=== PATIENT | female | born 1995 | race Caucasian/White ===

== ENCOUNTER 2022-03-05 15:09 | Emergency (ER) | payer OTHER, SELFPAY ==
--- NOTE | 2022-03-05 | DI.US.S_ITS ---
PROCEDURE: US BREAST RT LIMITED COMPARISON: None. INDICATIONS: RETROAREOLAR AXILLARY PAIN FINDINGS/IMPRESSION: No mass, fluid collection, or other significant abnormality in the right retroareolar breast. Right axillary evaluation demonstrates no lymphadenopathy, fluid collection, or other significant abnormality. Dictated by: Jesus Hartley M.D. on 03/05/2022 at 20:08 Approved by: Jesus Hartley M.D. on 03/05/2022 at 20:09
[2022-03-05 15:16] VITALS: BP 124/78; PULSE 76; RESP 18; TEMP 36.6; O2SAT 99
--- NOTE | 2022-03-05 15:22 | DI.RAD.S_ITS ---
PROCEDURE: XR CHEST 1V INDICATIONS: chest pain TECHNIQUE: One view of the chest was acquired. COMPARISON: [facility], , CHEST 2 VIEW, 12/03/2016, 14:42. FINDINGS: Surgical changes and devices: None. Lungs and pleura: Lungs are clear. No pleural effusions or pneumothorax. Mediastinum: Mediastinal contours appear normal. Heart size is normal. Bones and chest wall: No suspicious bony lesions. Overlying soft tissues appear unremarkable. IMPRESSION: No acute cardiopulmonary process demonstrated radiographically. Dictated by: Jesus Hartley M.D. on 03/05/2022 at 16:26 Approved by: Jesus Hartley M.D. on 03/05/2022 at 16:26
[2022-03-05 17:38] LABS: Add Manual Diff / Slide Review NO; Basophils Absolute Auto 100 /uL (0-100); Basophils Percent Auto 0.5 % (0-2); Eosinophils Absolute Auto 200 /uL (0-450); Eosinophils Percent Auto 1.4 % (2-4); Hematocrit 43.3 % (36-46); Hemoglobin 14.6 g/dL (12.0-16.0); Lymphocytes Absolute Auto 3300 /uL (1100-4500); Mean Corpuscular HGB Conc 33.7 % (30-36); Mean Corpuscular Hemoglobin 27.2 PG (26-34); Mean Corpuscular Volume 80.7 fL (80-100); Monocytes Absolute Auto 1000 /uL (0-900); Neutrophils Absolute Auto 8500 /uL (1500-7000); Neutrophils Percent Auto 65.1 % (50-75); Platelet Count 361 X10^3/uL (150-400); Red Blood Cell Count 5.37 X10^6/uL (4.0-5.2); Red Cell Distribution Width 16.3 % (11.6-14.8)
[2022-03-05 17:42] LABS: Alanine Aminotransferase 36 IU/L (<35); Albumin 4.7 g/dL (3.5-5.0); Albumin Globulin Ratio 1.3 (1.0-2.8); Alkaline Phosphatase 90 U/L (38-126); Aspartate Aminotransferase 48 IU/L (14-36); BUN Creatinine Ratio 16.1 (6-22); Bilirubin Total 0.5 mg/dL (0.2-1.3); Blood Urea Nitrogen 9 mg/dL (7-17); Calcium 9.3 mg/dL (8.4-10.2); Carbon Dioxide 26 mmol/L (22-32); Chloride 105 mmol/L (98-107); Creatine Kinase 63 U/L (30-135); Estimated Glomerular Filt Rate > 60 mL/min (>60); Globulin 3.6 g/dL (1.7-4.1); Glucose 96 mg/dL (70-100); HEMOLYSIS 26 (0-50); Lipase 59 U/L (23-300); Magnesium 1.9 mg/dL (1.6-2.3); Potassium 3.9 mmol/L (3.4-5.1); Sodium 142 mmol/L (137-145); Total Protein 8.3 g/dL (6.3-8.2)
[2022-03-05 17:54] LABS: Troponin I < 0.012 ng/mL (0.01-0.034)
[2022-03-05 18:01] VITALS: BP 131/78; PULSE 77; RESP 18; O2SAT 99
--- NOTE | 2022-03-05 18:21 | ED.CHESTPAIN ---
HPI - Chest Pain <JESSICA Griffin - Last Filed: 03/05/22 20:52> General Chief Complaint: Chest Pain Stated Complaint: Chest pain/breast pain/arm pits pain Time Seen by Provider: 03/05/22 18:07 Source: patient Mode of arrival: Ambulatory History of Present Illness HPI narrative: This is a 26-year-old female who presents to the emergency department complaining of left and right breast pain, states it feels like her chest is on fire, endorses bilateral armpit tenderness, states that she has had a runny nose and congestion for the last 2 weeks or more, endorses history of GERD and IBS, states that she is no longer on pantoprazole as she was prescribed from her primary care provider, states that her prescription ran out. Her primary care provider is Dr. Julian Samuel. She endorses having heartburn, burning of her epigastrium, states that both of her breasts are tender and she is not had a menses since November. Denies any abnormal vaginal discharge, denies any fever, chills, nausea, vomiting, states her stools have been regular and she has 1 each day, states they are soft. Denies any history of abdominal surgery, endorses midline burning sensation with bilateral breast pain primarily central around the areola and nipple. Endorses some mild erythema to the lateral left breast. Patient has a history of iodine allergy with vomiting and states that she blacks out. History allergy to amoxicillin with vomiting, codeine, sulfa, and miconazole. Related Data Previous Rx's Medication Instructions Recorded cefdinir 300 mg capsule 300 mg PO BID 10 days #20 caps 03/05/22 clindamycin HCl 150 mg capsule 150 mg PO TID mastitis 10 days #30 03/05/22 caps clindamycin HCl 300 mg capsule 300 mg PO BID for mastitis 10 days 03/05/22 #20 caps clindamycin HCl 300 mg capsule 300 mg PO TID 10 days #30 caps 03/05/22 pantoprazole 20 mg tablet,delayed 20 mg PO BID #60 tabs 03/05/22 release Allergies Allergy/AdvReac Type Severity Reaction Status Date / Time amoxicillin [AMOXICILLIN] Allergy Unknown Verified 03/05/22 18:34 Iodinated Contrast Media Allergy Unknown Verified 03/05/22 18:34 [IODINATED CONTRAST- ORAL AND IV DYE] sulfamethoxazole Allergy Unknown Verified 03/05/22 18:34 [From SEPTRA] trimethoprim [From SEPTRA] Allergy Unknown Verified 03/05/22 18:34 codeine Allergy Verified 03/05/22 18:34 miconazole Allergy Verified 03/05/22 18:34 [From Monistat 1 Combo Pack] Review of Systems <JESSICA Griffin - Last Filed: 03/05/22 20:52> Review of Systems Narrative: Review of systems is negative for acute abnormalities unless otherwise noted in HPI Exam <JESSICA Griffin - Last Filed: 03/05/22 20:52> Narrative Exam Narrative: Reviewed vitals signs and nursing notes. General: cooperative, comfortable, in no acute distress, well groomed HEENT: symmetrical facial expressions, moist mucous membranes Cardiovascular: regular rate and rhythm, no peripheral edema, warm extremities Respiratory: normal effort, able to speak in complete sentences, without wheezing, stridor, or abnormal breath sounds. No retractions or tachypnea. GI: abdomen soft, nontender to palpation, nondistended, without masses, rebound tenderness or exquisite tenderness with exam. MSK: moves all extremities, neurovascularly intact, no weakness, normal tone Skin: brisk capillary refill, without pallor or erythema, bilateral breasts without significant erythema, point tenderness, fluctuance, or sign of abscess or cellulitis. No masses or lumps or palpable Neuro: normal speech and cognition, A&O x3, ambulatory, clear speech Psych: mental status is grossly normal, congruent mood, normal affect, pleasant and cooperative Initial Vital Signs Initial Vital Signs: Vital Signs Temperature 97.8 F 03/05/22 15:16 Pulse Rate 76 03/05/22 15:16 Respiratory Rate 18 03/05/22 15:16 Blood Pressure 124/78 03/05/22 15:16 Pulse Oximetry 99 03/05/22 15:16 Oxygen Delivery Method 03/05/22 15:16 <Karon Maya DO - Last Filed: 03/07/22 09:02> Initial Vital Signs Initial Vital Signs: Vital Signs Temperature 97.8 F 03/05/22 15:16 Pulse Rate 76 03/05/22 15:16 Respiratory Rate 18 03/05/22 15:16 Blood Pressure 124/78 03/05/22 15:16 Pulse Oximetry 99 03/05/22 15:16 Oxygen Delivery Method 03/05/22 15:16 <Santos Parker DO - Last Filed: 03/06/22 04:46> Initial Vital Signs Initial Vital Signs: Vital Signs Temperature 97.8 F 03/05/22 15:16 Pulse Rate 76 03/05/22 15:16 Respiratory Rate 18 03/05/22 15:16 Blood Pressure 124/78 03/05/22 15:16 Pulse Oximetry 99 03/05/22 15:16 Oxygen Delivery Method 03/05/22 15:16 Course <JESSICA Griffin - Last Filed: 03/05/22 20:52> Orders Ordered: Discontinued Medications Al Hydrox/Mg Hydrox/Simethicone 20 ml/ Lidocaine HCl 15 ml 0 ml PO NOW ONE Stop: 03/05/22 18:23 Last Admin: 03/05/22 18:37 Dose: 35 ml Documented By: AT Lactated Ringer's (Lactated Ringers) 1,000 mls @ 1,000 mls/hr IV BOLUS ONE Stop: 03/05/22 19:24 Last Infusion: 03/05/22 21:04 Dose: 0 mls/hr Documented By: Admin: 03/05/22 18:35 Dose: 1,000 mls/hr Documented By: AT Ceftriaxone Sodium 1,000 mg/ (Sodium Chloride) 100 mls @ 200 mls/hr IV NOW ONE Stop: 03/05/22 19:14 Last Infusion: 03/05/22 21:04 Dose: 0 mls/hr Documented By: Admin: 03/05/22 20:02 Dose: 200 mls/hr Documented By: STONEY Pantoprazole Sodium (Pantoprazole 40 Mg Vial) 40 mg IV NOW ONE Stop: 03/05/22 18:23 Last Admin: 03/05/22 18:37 Dose: 40 mg Documented By: AT Vital Signs Vital signs: Vital Signs - 8 hr 03/05/22 21:05 Temperature 96.7 F L Pulse Rate 67 Respiratory Rate 16 Blood Pressure 128/77 Pulse Oximetry 100 Oxygen Delivery Method Room Air <Karon Maya DO - Last Filed: 03/07/22 09:02> Orders Ordered: Discontinued Medications Al Hydrox/Mg Hydrox/Simethicone 20 ml/ Lidocaine HCl 15 ml 0 ml PO NOW ONE Stop: 03/05/22 18:23 Last Admin: 03/05/22 18:37 Dose: 35 ml Documented By: AT Lactated Ringer's (Lactated Ringers) 1,000 mls @ 1,000 mls/hr IV BOLUS ONE Stop: 03/05/22 19:24 Last Infusion: 03/05/22 21:04 Dose: 0 mls/hr Documented By: Admin: 03/05/22 18:35 Dose: 1,000 mls/hr Documented By: AT Ceftriaxone Sodium 1,000 mg/ (Sodium Chloride) 100 mls @ 200 mls/hr IV NOW ONE Stop: 03/05/22 19:14 Last Infusion: 03/05/22 21:04 Dose: 0 mls/hr Documented By: Admin: 03/05/22 20:02 Dose: 200 mls/hr Documented By: STONEY Pantoprazole Sodium (Pantoprazole 40 Mg Vial) 40 mg IV NOW ONE Stop: 03/05/22 18:23 Last Admin: 03/05/22 18:37 Dose: 40 mg Documented By: AT Vital Signs Vital signs: Vital Signs - 8 hr 03/05/22 21:05 Temperature 96.7 F L Pulse Rate 67 Respiratory Rate 16 Blood Pressure 128/77 Pulse Oximetry 100 Oxygen Delivery Method Room Air <Santos Parker DO - Last Filed: 03/06/22 04:46> Orders Ordered: Discontinued Medications Al Hydrox/Mg Hydrox/Simethicone 20 ml/ Lidocaine HCl 15 ml 0 ml PO NOW ONE Stop: 03/05/22 18:23 Last Admin: 03/05/22 18:37 Dose: 35 ml Documented By: AT Lactated Ringer's (Lactated Ringers) 1,000 mls @ 1,000 mls/hr IV BOLUS ONE Stop: 03/05/22 19:24 Last Infusion: 03/05/22 21:04 Dose: 0 mls/hr Documented By: Admin: 03/05/22 18:35 Dose: 1,000 mls/hr Documented By: AT Ceftriaxone Sodium 1,000 mg/ (Sodium Chloride) 100 mls @ 200 mls/hr IV NOW ONE Stop: 03/05/22 19:14 Last Infusion: 03/05/22 21:04 Dose: 0 mls/hr Documented By: Admin: 03/05/22 20:02 Dose: 200 mls/hr Documented By: STONEY Pantoprazole Sodium (Pantoprazole 40 Mg Vial) 40 mg IV NOW ONE Stop: 03/05/22 18:23 Last Admin: 03/05/22 18:37 Dose: 40 mg Documented By: AT Vital Signs Vital signs: Vital Signs - 8 hr 03/05/22 21:05 Temperature 96.7 F L Pulse Rate 67 Respiratory Rate 16 Blood Pressure 128/77 Pulse Oximetry 100 Oxygen Delivery Method Room Air MDM - Chest Pain <JESSICA Griffin - Last Filed: 03/05/22 20:52> Lab Data Result diagrams: 03/05/22 15:25 03/05/22 15:25 Labs: Lab Results 03/05/22 03/05/22 03/05/22 Range/Units 15:25 15:25 18:50 WBC 13.0 H (4.5-11.0) X10^3/uL RBC 5.37 H (4.0-5.2) X10^6/uL Hgb 14.6 (12.0-16.0) g/dL Hct 43.3 (36-46) % MCV 80.7 (80-100) fL MCH 27.2 (26-34) PG MCHC 33.7 (30-36) % RDW 16.3 H (11.6-14.8) % Plt Count 361 (150-400) X10^3/uL Neut % (Auto) 65.1 (50-75) % Lymph % (Auto) 25.0 (25-40) % [place] % (Auto) 8.0 (3-14) % Eos % (Auto) 1.4 L (2-4) % Baso % (Auto) 0.5 (0-2) % Neut # (Auto) 8500 H (9897-5655) /uL Lymph # (Auto) 3300 (4367-6107) /uL [place] # (Auto) 1000 H (0-900) /uL Eos # (Auto) 200 (0-450) /uL Baso # (Auto) 100 (0-100) /uL Sodium 142 (137-145) mmol/L Potassium 3.9 (3.4-5.1) mmol/L Chloride 105 (98-107) mmol/L Carbon Dioxide 26 (22-32) mmol/L BUN 9 (7-17) mg/dL Creatinine 0.56 (0.52-1.04) mg/dL Estimated GFR > 60 (>60) mL/min BUN/Creatinine Ratio 16.1 (6-22) Glucose 96 (70-100) mg/dL Calcium 9.3 (8.4-10.2) mg/dL Magnesium 1.9 (1.6-2.3) mg/dL Total Bilirubin 0.5 (0.2-1.3) mg/dL AST 48 H (14-36) IU/L ALT 36 H (<35) IU/L Alkaline Phosphatase 90 (38-126) U/L Total Creatine Kinase 63 (30-135) U/L CK-MB (CK-2) TNP CK-MB (CK-2) Rel Index TNP Troponin I < 0.012 (0.01-0.034) ng/mL Total Protein 8.3 H (6.3-8.2) g/dL Albumin 4.7 (3.5-5.0) g/dL Globulin 3.6 (1.7-4.1) g/dL Albumin/Globulin Ratio 1.3 (1.0-2.8) Lipase 59 (23-300) U/L Urine Color Yellow Urine Appearance Cloudy Urine pH 6.5 (4.5-8.0) Ur Specific [place] 1.020 (1.000-1.035) Urine Protein 1+ H (Negative) Urine Glucose (UA) Negative (Negative) g/dL Urine Ketones Negative (NEGATIVE) Urine Occult Blood Negative (Negative) Urine Nitrate Negative (Negative) Urine Bilirubin Negative (NEGATIVE) Urine Urobilinogen 0.2 (0.2) E.U./dL Ur Leukocyte Esterase Trace H (NEGATIVE) Urine RBC None seen (0-5/HPF) Urine WBC 5-10/hpf H (0-5/HPF) Ur Squamous Epith Cells 5-10 /hpf H (0-5/HPF) Amorphous Sediment 1+ Urine Bacteria Moderate (10-30) H (None) Urine Mucus 1+ H (Negative) Ur Culture Indicated? Specimen cultured Urine Test (Negative) Chlamy pneumoniae PCR (Not Detect) Adenovirus (PCR) (Not Detect) B. pertussis DNA (PCR) (Not Detecte) B.parapertussis DNA PCR (Not Detecte) Coronavirus OC43 (PCR) (Not Detect) Coronavirus HKU1 (PCR) (Not Detect) Coronavirus 229E (PCR) (Not Detect) SARS-CoV-2 (PCR) (Not Detecte) Coronavirus NL63 (PCR) (Not Detect) Human Metapneumovir PCR (Not Detect) Influenza Type A (PCR) (Not Detect) Influenza Type B (PCR) (Not Detect) M. pneumoniae (PCR) (Not Detect) Parainfluenza 1 (PCR) (Not Detect) Parainfluenza 2 (PCR) (Not Detect) Parainfluenza 3 (PCR) (Not Detect) Parainfluenza 4 (PCR) (Not Detect) RSV (PCR) (Not Detect) Entero/Rhino (PCR) (Not Detect) 03/05/22 03/05/22 Range/Units 18:50 19:15 WBC (4.5-11.0) X10^3/uL RBC (4.0-5.2) X10^6/uL Hgb (12.0-16.0) g/dL Hct (36-46) % MCV (80-100) fL MCH (26-34) PG MCHC (30-36) % RDW (11.6-14.8) % Plt Count (150-400) X10^3/uL Neut % (Auto) (50-75) % Lymph % (Auto) (25-40) % [place] % (Auto) (3-14) % Eos % (Auto) (2-4) % Baso % (Auto) (0-2) % Neut # (Auto) (5348-4021) /uL Lymph # (Auto) (1605-7745) /uL [place] # (Auto) (0-900) /uL Eos # (Auto) (0-450) /uL Baso # (Auto) (0-100) /uL Sodium (137-145) mmol/L Potassium (3.4-5.1) mmol/L Chloride (98-107) mmol/L Carbon Dioxide (22-32) mmol/L BUN (7-17) mg/dL Creatinine (0.52-1.04) mg/dL Estimated GFR (>60) mL/min BUN/Creatinine Ratio (6-22) Glucose (70-100) mg/dL Calcium (8.4-10.2) mg/dL Magnesium (1.6-2.3) mg/dL Total Bilirubin (0.2-1.3) mg/dL AST (14-36) IU/L ALT (<35) IU/L Alkaline Phosphatase (38-126) U/L Total Creatine Kinase (30-135) U/L CK-MB (CK-2) CK-MB (CK-2) Rel Index Troponin I (0.01-0.034) ng/mL Total Protein (6.3-8.2) g/dL Albumin (3.5-5.0) g/dL Globulin (1.7-4.1) g/dL Albumin/Globulin Ratio (1.0-2.8) Lipase (23-300) U/L Urine Color Urine Appearance Urine pH (4.5-8.0) Ur Specific [place] (1.000-1.035) Urine Protein (Negative) Urine Glucose (UA) (Negative) g/dL Urine Ketones (NEGATIVE) Urine Occult Blood (Negative) Urine Nitrate (Negative) Urine Bilirubin (NEGATIVE) Urine Urobilinogen (0.2) E.U./dL Ur Leukocyte Esterase (NEGATIVE) Urine RBC (0-5/HPF) Urine WBC (0-5/HPF) Ur Squamous Epith Cells (0-5/HPF) Amorphous Sediment Urine Bacteria (None) Urine Mucus (Negative) Ur Culture Indicated? Urine Test Negative (Negative) Chlamy pneumoniae PCR Not detected (Not Detect) Adenovirus (PCR) Detected H (Not Detect) B. pertussis DNA (PCR) Not detected (Not Detecte) B.parapertussis DNA PCR Not detected (Not Detecte) Coronavirus OC43 (PCR) Not detected (Not Detect) Coronavirus HKU1 (PCR) Not detected (Not Detect) Coronavirus 229E (PCR) Not detected (Not Detect) SARS-CoV-2 (PCR) Not detected (Not Detecte) Coronavirus NL63 (PCR) Not detected (Not Detect) Human Metapneumovir PCR Not detected (Not Detect) Influenza Type A (PCR) Not detected (Not Detect) Influenza Type B (PCR) Not detected (Not Detect) M. pneumoniae (PCR) Not detected (Not Detect) Parainfluenza 1 (PCR) Not detected (Not Detect) Parainfluenza 2 (PCR) Not detected (Not Detect) Parainfluenza 3 (PCR) Not detected (Not Detect) Parainfluenza 4 (PCR) Not detected (Not Detect) RSV (PCR) Not detected (Not Detect) Entero/Rhino (PCR) Not detected (Not Detect) Point of Care Testing Test Results Negative Imaging Data US Breast: Radiologist's Impression: PROCEDURE: US BREAST RT LIMITED ? COMPARISON: None. ? INDICATIONS: RETROAREOLAR ? AXILLARY PAIN ? FINDINGS/IMPRESSION: ? No mass, fluid collection, or other significant abnormality in the right retroareolar breast.? Right axillary evaluation demonstrates no lymphadenopathy, fluid collection, or other significant abnormality. ? ? ? Dictated by: Jesus Hartley M.D. on 03/05/2022 at 20:08 ? ? Approved by: Jesus Hartley M.D. on 03/05/2022 at 20:09 ? Chest x-ray: Radiologist's Impression: PROCEDURE:? XR CHEST 1V ? INDICATIONS:? chest pain ? TECHNIQUE:? One view of the chest was acquired.? ? COMPARISON:? [facility], , CHEST 2 VIEW, 12/03/2016, 14:42. ? FINDINGS:? ? Surgical changes and devices:? None.? ? Lungs and pleura:? Lungs are clear.? No pleural effusions or pneumothorax.? ? Mediastinum:? Mediastinal contours appear normal.? Heart size is normal.? ? Bones and chest wall:? No suspicious bony lesions.? Overlying soft tissues appear unremarkable.? ? IMPRESSION:? No acute cardiopulmonary process demonstrated radiographically. ? ? Dictated by: Jesus Hartley M.D. on 03/05/2022 at 16:26 ? ? Approved by: Jesus Hartley M.D. on 03/05/2022 at 16:26 ? CT scan - abdomen/pelvis: Radiologist's Impression: PROCEDURE:? CT KIDNEY URETER BLADDER (KUB) ? INDICATIONS:? history of nephrolithiasis, rt flank ? TECHNIQUE:? Axial sections were acquired from the lung bases to the pubic symphysis.? Coronal and sagittal reformats were performed.? For radiation dose reduction, the following was used: ?automated exposure control, adjustment of mA and/or kV according to patient size.? ? COMPARISON:? None. ? FINDINGS:? Image quality:? Excellent.? ? Lung bases:? Scattered atelectasis in periphery of bilateral lung bases are seen..? ? Heart:? No significant findings. ? URINARY: Right Kidney:? No stones are seen.? Mild prominence of right renal collecting system is noted.? No significant perinephric fat stranding. Right Ureter:? No hydroureter. ? Left Kidney:? Nonobstructing stone is seen in upper pole and lower pole of left kidney measures up to 3 mm in size.? Mild prominence of left renal collecting system is seen.? No perinephric fat stranding. Left Ureter:? No hydroureter. ? Bladder:? Normal wall thickness. No stones. ? ? ? ABDOMEN: Liver:? Unremarkable.? ? Gallbladder:? Numerous calcified stones are seen in dependent portion of gallbladder lumen.? No gallbladder wall thickening or pericholecystic fluid. Biliary ducts:? No biliary ductal dilatation. Pancreas:? Unremarkable.? ? Spleen:? Unremarkable.? ? Adrenal Glands:? Unremarkable.? ? ? Stomach and Bowel:? Stomach, small bowel loops, and colon are unremarkable.? Appendix is visualized and is within normal limits. Peritoneum:? No abnormal intraperitoneal fluid.? No free air.? ? Ventral Wall: ? No hernia.? Abdominal Nodes:? No enlarged retroperitoneal or mesenteric lymph nodes.? Vessels:? Aorta and inferior vena cava are normal in size.? ? PELVIS: Pelvic Organs:? Uterus and bilateral adnexa show no gross abnormalities. Pelvic Nodes: Unremarkable. Miscellaneous: No inguinal hernias are seen. ? ? ? Bones:? No suspicious bony lesion.? No acute vertebral body compression fracture. ? IMPRESSION:? 1. Tiny nonobstructing left renal calculi.? Mild prominence of bilateral renal pelvises which may represent bilateral peripelvic cysts versus residual hydronephrosis from passed stone.? No hydroureter.? Normal appearing urinary bladder. ? 2. Normal appendix.? No bowel obstruction.? No free fluid or free air. ? 3. Cholelithiasis without CT evidence of acute cholecystitis.? No biliary ductal dilatation.? ? ? Dictated by: Haresh Hobbs M.D. on 03/05/2022 at 20:22 ? ? Approved by: Haresh Hobbs M.D. on 03/05/2022 at 20:26 ? MDM Narrative Medical decision making narrative: This is a 26-year-old female presents to the emergency department with various complaints including bilateral breast pain, tenderness to bilateral axilla, epigastric abdominal pain with history of GERD and IBS and is not currently on PPI. Patient was found to have acute cystitis with leukocytes, and bacteria found in her urine, urine culture is pending. Patient endorses a history of nephrolithiasis, CT KUB obtained and shows tiny nonobstructing stones in the left kidney, mild prominence of bilateral renal pelvises which may represent bilateral peripelvic cysts versus residual hydronephrosis from passed stone. No hydroureter, normal appearing urinary bladder. Normal appendix, no bowel obstruction. No free fluid or free air. Cholelithiasis without evidence of cholecystitis and no biliary ductal dilatation. Patient had a nontender abdomen to palpation. Her lab work revealed a leukocytosis of 13.0, no anemia, no electrolyte abnormalities or significantly elevated liver enzymes, total bilirubin is 0.5, troponin is 0.012, lipase of 59, UA shows trace leukocyte esterase with wbc's, bacteria and no blood. Patient endorses rhinorrhea for the last 2 weeks, her respiratory panel was positive for adenovirus. Not positive for any other viral pathogens. Her chest x-ray was negative for acute cardiopulmonary abnormality. Breath sounds were clear throughout. No increased work of breathing. Patient understands to follow-up with her primary care provider, her urologist, and [facility] as needed for upper endoscopy if her epigastric pain is ongoing after starting pantoprazole again. My differential includes H pylori, gastritis, gastric ulcer, gallstones, pneumonia, No peritoneal signs on abdominal exam. Patient remains p.o. tolerant. Serial abdominal exam without increase in abdominal pain. Given history and exam, low suspicion for acute abdominal process, such as acute cholecystitis, pancreatitis, perforated viscus, atypical appendicitis, colitis, diverticulitis or torsion. Extensive conversation about ER return precautions and need for close follow-up. <Karon Maya, DO - Last Filed: 03/07/22 09:02> Lab Data Labs: Lab Results 03/05/22 03/05/22 03/05/22 Range/Units 15:25 15:25 18:50 WBC 13.0 H (4.5-11.0) X10^3/uL RBC 5.37 H (4.0-5.2) X10^6/uL Hgb 14.6 (12.0-16.0) g/dL Hct 43.3 (36-46) % MCV 80.7 (80-100) fL MCH 27.2 (26-34) PG MCHC 33.7 (30-36) % RDW 16.3 H (11.6-14.8) % Plt Count 361 (150-400) X10^3/uL Neut % (Auto) 65.1 (50-75) % Lymph % (Auto) 25.0 (25-40) % [place] % (Auto) 8.0 (3-14) % Eos % (Auto) 1.4 L (2-4) % Baso % (Auto) 0.5 (0-2) % Neut # (Auto) 8500 H (9845-7810) /uL Lymph # (Auto) 3300 (4725-6494) /uL [place] # (Auto) 1000 H (0-900) /uL Eos # (Auto) 200 (0-450) /uL Baso # (Auto) 100 (0-100) /uL Sodium 142 (137-145) mmol/L Potassium 3.9 (3.4-5.1) mmol/L Chloride 105 (98-107) mmol/L Carbon Dioxide 26 (22-32) mmol/L BUN 9 (7-17) mg/dL Creatinine 0.56 (0.52-1.04) mg/dL Estimated GFR > 60 (>60) mL/min BUN/Creatinine Ratio 16.1 (6-22) Glucose 96 (70-100) mg/dL Calcium 9.3 (8.4-10.2) mg/dL Magnesium 1.9 (1.6-2.3) mg/dL Total Bilirubin 0.5 (0.2-1.3) mg/dL AST 48 H (14-36) IU/L ALT 36 H (<35) IU/L Alkaline Phosphatase 90 (38-126) U/L Total Creatine Kinase 63 (30-135) U/L CK-MB (CK-2) TNP CK-MB (CK-2) Rel Index TNP Troponin I < 0.012 (0.01-0.034) ng/mL Total Protein 8.3 H (6.3-8.2) g/dL Albumin 4.7 (3.5-5.0) g/dL Globulin 3.6 (1.7-4.1) g/dL Albumin/Globulin Ratio 1.3 (1.0-2.8) Lipase 59 (23-300) U/L Urine Color Yellow Urine Appearance Cloudy Urine pH 6.5 (4.5-8.0) Ur Specific [place] 1.020 (1.000-1.035) Urine Protein 1+ H (Negative) Urine Glucose (UA) Negative (Negative) g/dL Urine Ketones Negative (NEGATIVE) Urine Occult Blood Negative (Negative) Urine Nitrate Negative (Negative) Urine Bilirubin Negative (NEGATIVE) Urine Urobilinogen 0.2 (0.2) E.U./dL Ur Leukocyte Esterase Trace H (NEGATIVE) Urine RBC None seen (0-5/HPF) Urine WBC 5-10/hpf H (0-5/HPF) Ur Squamous Epith Cells 5-10 /hpf H (0-5/HPF) Amorphous Sediment 1+ Urine Bacteria Moderate (10-30) H (None) Urine Mucus 1+ H (Negative) Ur Culture Indicated? Specimen cultured Urine Test (Negative) Chlamy pneumoniae PCR (Not Detect) Adenovirus (PCR) (Not Detect) B. pertussis DNA (PCR) (Not Detecte) B.parapertussis DNA PCR (Not Detecte) Coronavirus OC43 (PCR) (Not Detect) Coronavirus HKU1 (PCR) (Not Detect) Coronavirus 229E (PCR) (Not Detect) SARS-CoV-2 (PCR) (Not Detecte) Coronavirus NL63 (PCR) (Not Detect) Human Metapneumovir PCR (Not Detect) Influenza Type A (PCR) (Not Detect) Influenza Type B (PCR) (Not Detect) M. pneumoniae (PCR) (Not Detect) Parainfluenza 1 (PCR) (Not Detect) Parainfluenza 2 (PCR) (Not Detect) Parainfluenza 3 (PCR) (Not Detect) Parainfluenza 4 (PCR) (Not Detect) RSV (PCR) (Not Detect) Entero/Rhino (PCR) (Not Detect) 03/05/22 03/05/22 Range/Units 18:50 19:15 WBC (4.5-11.0) X10^3/uL RBC (4.0-5.2) X10^6/uL Hgb (12.0-16.0) g/dL Hct (36-46) % MCV (80-100) fL MCH (26-34) PG MCHC (30-36) % RDW (11.6-14.8) % Plt Count (150-400) X10^3/uL Neut % (Auto) (50-75) % Lymph % (Auto) (25-40) % [place] % (Auto) (3-14) % Eos % (Auto) (2-4) % Baso % (Auto) (0-2) % Neut # (Auto) (9023-9582) /uL Lymph # (Auto) (3005-8269) /uL [place] # (Auto) (0-900) /uL Eos # (Auto) (0-450) /uL Baso # (Auto) (0-100) /uL Sodium (137-145) mmol/L Potassium (3.4-5.1) mmol/L Chloride (98-107) mmol/L Carbon Dioxide (22-32) mmol/L BUN (7-17) mg/dL Creatinine (0.52-1.04) mg/dL Estimated GFR (>60) mL/min BUN/Creatinine Ratio (6-22) Glucose (70-100) mg/dL Calcium (8.4-10.2) mg/dL Magnesium (1.6-2.3) mg/dL Total Bilirubin (0.2-1.3) mg/dL AST (14-36) IU/L ALT (<35) IU/L Alkaline Phosphatase (38-126) U/L Total Creatine Kinase (30-135) U/L CK-MB (CK-2) CK-MB (CK-2) Rel Index Troponin I (0.01-0.034) ng/mL Total Protein (6.3-8.2) g/dL Albumin (3.5-5.0) g/dL Globulin (1.7-4.1) g/dL Albumin/Globulin Ratio (1.0-2.8) Lipase (23-300) U/L Urine Color Urine Appearance Urine pH (4.5-8.0) Ur Specific [place] (1.000-1.035) Urine Protein (Negative) Urine Glucose (UA) (Negative) g/dL Urine Ketones (NEGATIVE) Urine Occult Blood (Negative) Urine Nitrate (Negative) Urine Bilirubin (NEGATIVE) Urine Urobilinogen (0.2) E.U./dL Ur Leukocyte Esterase (NEGATIVE) Urine RBC (0-5/HPF) Urine WBC (0-5/HPF) Ur Squamous Epith Cells (0-5/HPF) Amorphous Sediment Urine Bacteria (None) Urine Mucus (Negative) Ur Culture Indicated? Urine Test Negative (Negative) Chlamy pneumoniae PCR Not detected (Not Detect) Adenovirus (PCR) Detected H (Not Detect) B. pertussis DNA (PCR) Not detected (Not Detecte) B.parapertussis DNA PCR Not detected (Not Detecte) Coronavirus OC43 (PCR) Not detected (Not Detect) Coronavirus HKU1 (PCR) Not detected (Not Detect) Coronavirus 229E (PCR) Not detected (Not Detect) SARS-CoV-2 (PCR) Not detected (Not Detecte) Coronavirus NL63 (PCR) Not detected (Not Detect) Human Metapneumovir PCR Not detected (Not Detect) Influenza Type A (PCR) Not detected (Not Detect) Influenza Type B (PCR) Not detected (Not Detect) M. pneumoniae (PCR) Not detected (Not Detect) Parainfluenza 1 (PCR) Not detected (Not Detect) Parainfluenza 2 (PCR) Not detected (Not Detect) Parainfluenza 3 (PCR) Not detected (Not Detect) Parainfluenza 4 (PCR) Not detected (Not Detect) RSV (PCR) Not detected (Not Detect) Entero/Rhino (PCR) Not detected (Not Detect) Point of Care Testing Test Results Negative ECG Data Attestation: I personally reviewed and interpreted this ECG as follows: Interpretation: Sinus rhythm rate of 100 IL 124 QRS 84 and QTC 446. No acute elevation, T-wave inverted 3 no Q-wave. <Santos Parker, DO - Last Filed: 03/06/22 04:46> Lab Data Labs: Lab Results 03/05/22 03/05/22 03/05/22 Range/Units 15:25 15:25 18:50 WBC 13.0 H (4.5-11.0) X10^3/uL RBC 5.37 H (4.0-5.2) X10^6/uL Hgb 14.6 (12.0-16.0) g/dL Hct 43.3 (36-46) % MCV 80.7 (80-100) fL MCH 27.2 (26-34) PG MCHC 33.7 (30-36) % RDW 16.3 H (11.6-14.8) % Plt Count 361 (150-400) X10^3/uL Neut % (Auto) 65.1 (50-75) % Lymph % (Auto) 25.0 (25-40) % [place] % (Auto) 8.0 (3-14) % Eos % (Auto) 1.4 L (2-4) % Baso % (Auto) 0.5 (0-2) % Neut # (Auto) 8500 H (9999-2370) /uL Lymph # (Auto) 3300 (0835-9469) /uL [place] # (Auto) 1000 H (0-900) /uL Eos # (Auto) 200 (0-450) /uL Baso # (Auto) 100 (0-100) /uL Sodium 142 (137-145) mmol/L Potassium 3.9 (3.4-5.1) mmol/L Chloride 105 (98-107) mmol/L Carbon Dioxide 26 (22-32) mmol/L BUN 9 (7-17) mg/dL Creatinine 0.56 (0.52-1.04) mg/dL Estimated GFR > 60 (>60) mL/min BUN/Creatinine Ratio 16.1 (6-22) Glucose 96 (70-100) mg/dL Calcium 9.3 (8.4-10.2) mg/dL Magnesium 1.9 (1.6-2.3) mg/dL Total Bilirubin 0.5 (0.2-1.3) mg/dL AST 48 H (14-36) IU/L ALT 36 H (<35) IU/L Alkaline Phosphatase 90 (38-126) U/L Total Creatine Kinase 63 (30-135) U/L CK-MB (CK-2) TNP CK-MB (CK-2) Rel Index TNP Troponin I < 0.012 (0.01-0.034) ng/mL Total Protein 8.3 H (6.3-8.2) g/dL Albumin 4.7 (3.5-5.0) g/dL Globulin 3.6 (1.7-4.1) g/dL Albumin/Globulin Ratio 1.3 (1.0-2.8) Lipase 59 (23-300) U/L Urine Color Yellow Urine Appearance Cloudy Urine pH 6.5 (4.5-8.0) Ur Specific [place] 1.020 (1.000-1.035) Urine Protein 1+ H (Negative) Urine Glucose (UA) Negative (Negative) g/dL Urine Ketones Negative (NEGATIVE) Urine Occult Blood Negative (Negative) Urine Nitrate Negative (Negative) Urine Bilirubin Negative (NEGATIVE) Urine Urobilinogen 0.2 (0.2) E.U./dL Ur Leukocyte Esterase Trace H (NEGATIVE) Urine RBC None seen (0-5/HPF) Urine WBC 5-10/hpf H (0-5/HPF) Ur Squamous Epith Cells 5-10 /hpf H (0-5/HPF) Amorphous Sediment 1+ Urine Bacteria Moderate (10-30) H (None) Urine Mucus 1+ H (Negative) Ur Culture Indicated? Specimen cultured Urine Test (Negative) Chlamy pneumoniae PCR (Not Detect) Adenovirus (PCR) (Not Detect) B. pertussis DNA (PCR) (Not Detecte) B.parapertussis DNA PCR (Not Detecte) Coronavirus OC43 (PCR) (Not Detect) Coronavirus HKU1 (PCR) (Not Detect) Coronavirus 229E (PCR) (Not Detect) SARS-CoV-2 (PCR) (Not Detecte) Coronavirus NL63 (PCR) (Not Detect) Human Metapneumovir PCR (Not Detect) Influenza Type A (PCR) (Not Detect) Influenza Type B (PCR) (Not Detect) M. pneumoniae (PCR) (Not Detect) Parainfluenza 1 (PCR) (Not Detect) Parainfluenza 2 (PCR) (Not Detect) Parainfluenza 3 (PCR) (Not Detect) Parainfluenza 4 (PCR) (Not Detect) RSV (PCR) (Not Detect) Entero/Rhino (PCR) (Not Detect) 03/05/22 03/05/22 Range/Units 18:50 19:15 WBC (4.5-11.0) X10^3/uL RBC (4.0-5.2) X10^6/uL Hgb (12.0-16.0) g/dL Hct (36-46) % MCV (80-100) fL MCH (26-34) PG MCHC (30-36) % RDW (11.6-14.8) % Plt Count (150-400) X10^3/uL Neut % (Auto) (50-75) % Lymph % (Auto) (25-40) % [place] % (Auto) (3-14) % Eos % (Auto) (2-4) % Baso % (Auto) (0-2) % Neut # (Auto) (3371-6562) /uL Lymph # (Auto) (8321-7408) /uL [place] # (Auto) (0-900) /uL Eos # (Auto) (0-450) /uL Baso # (Auto) (0-100) /uL Sodium (137-145) mmol/L Potassium (3.4-5.1) mmol/L Chloride (98-107) mmol/L Carbon Dioxide (22-32) mmol/L BUN (7-17) mg/dL Creatinine (0.52-1.04) mg/dL Estimated GFR (>60) mL/min BUN/Creatinine Ratio (6-22) Glucose (70-100) mg/dL Calcium (8.4-10.2) mg/dL Magnesium (1.6-2.3) mg/dL Total Bilirubin (0.2-1.3) mg/dL AST (14-36) IU/L ALT (<35) IU/L Alkaline Phosphatase (38-126) U/L Total Creatine Kinase (30-135) U/L CK-MB (CK-2) CK-MB (CK-2) Rel Index Troponin I (0.01-0.034) ng/mL Total Protein (6.3-8.2) g/dL Albumin (3.5-5.0) g/dL Globulin (1.7-4.1) g/dL Albumin/Globulin Ratio (1.0-2.8) Lipase (23-300) U/L Urine Color Urine Appearance Urine pH (4.5-8.0) Ur Specific [place] (1.000-1.035) Urine Protein (Negative) Urine Glucose (UA) (Negative) g/dL Urine Ketones (NEGATIVE) Urine Occult Blood (Negative) Urine Nitrate (Negative) Urine Bilirubin (NEGATIVE) Urine Urobilinogen (0.2) E.U./dL Ur Leukocyte Esterase (NEGATIVE) Urine RBC (0-5/HPF) Urine WBC (0-5/HPF) Ur Squamous Epith Cells (0-5/HPF) Amorphous Sediment Urine Bacteria (None) Urine Mucus (Negative) Ur Culture Indicated? Urine Test Negative (Negative) Chlamy pneumoniae PCR Not detected (Not Detect) Adenovirus (PCR) Detected H (Not Detect) B. pertussis DNA (PCR) Not detected (Not Detecte) B.parapertussis DNA PCR Not detected (Not Detecte) Coronavirus OC43 (PCR) Not detected (Not Detect) Coronavirus HKU1 (PCR) Not detected (Not Detect) Coronavirus 229E (PCR) Not detected (Not Detect) SARS-CoV-2 (PCR) Not detected (Not Detecte) Coronavirus NL63 (PCR) Not detected (Not Detect) Human Metapneumovir PCR Not detected (Not Detect) Influenza Type A (PCR) Not detected (Not Detect) Influenza Type B (PCR) Not detected (Not Detect) M. pneumoniae (PCR) Not detected (Not Detect) Parainfluenza 1 (PCR) Not detected (Not Detect) Parainfluenza 2 (PCR) Not detected (Not Detect) Parainfluenza 3 (PCR) Not detected (Not Detect) Parainfluenza 4 (PCR) Not detected (Not Detect) RSV (PCR) Not detected (Not Detect) Entero/Rhino (PCR) Not detected (Not Detect) Point of Care Testing Test Results Negative Discharge Plan Departure Patient Disposition: Home Clinical Impression: Acute cystitis with hematuria, Acute breast pain, Epigastric abdominal pain, Hx of gastroesophageal reflux (GERD), History of IBS, Asymptomatic gallstones, Adenoviral infection Activity Restrictions/Additional Instructions: *You have been diagnosed with a bladder infection, breast pain, and bilateral axilla pain. This is likely related to your immune system becoming activated since you have a bladder infection. Please take this antibiotic twice a day for the next 10 days and take pantoprazole morning and night on an empty stomach for your GERD pain. Please call and schedule an appointment with Barbara Garduno for follow-up, she can reference your CT today. Please stay hydrated, empty your bladder frequently, return for any new or worsening conditions or if you have any inability tolerating your antibiotic. For your breasts pain, I have given you a prescription of doxycycline which will hopefully help with a skin infection. If this gets better overnight, you do not need this medication but if it is ongoing tomorrow, please start this medication. Please stay hydrated with plenty of clear fluids, follow-up with Dr. Garduno and start taking pantoprazole 20 mg a.m. and p.m.. Please follow-up with Dr. Appiah about this. You may need an upper endoscopy if you have ongoing pain despite being on twice a day pantoprazole. I have added [facility] below to schedule an upper endoscopy as needed. Please return for any new or worsening symptoms, thank you for trusting us with your care and I hope you feel better. Your CT shows tiny stones in the left kidney without obstruction. Also your gallbladder does have stones but it does not show any signs of infection currently. Please follow the gallbladder diet above and follow-up with your outpatient providers. *What to do: *Please continue to take your regular medications as directed. [x ] New medication prescriptions sent to your pharmacy: [[facility] ] [ ] New medication written as a paper prescription [ ] No new medications given *Please follow up with your primary care provider in 2-3 days, call for an appointment. Let them know you were seen in the Emergency Department and that we asked that you be seen for follow-up. We will electronically transmit a record of today's note if your PCP is in our system *If you do not have a primary care provider please contact [phone] to establish care with one of the [facility] primary care providers. *Return to Emergency Department if you should have any new, worsening, or concerning symptoms, such as [fever greater than 101F, chills, worsening pain, persistent vomiting or other bothersome symptoms]. Prescriptions: New cefdinir 300 mg capsule 300 mg PO BID 10 Days Qty: 20 0RF pantoprazole 20 mg tablet,delayed release (DR/EC) 20 mg PO BID Qty: 60 0RF clindamycin HCl 300 mg capsule 300 mg PO BID 10 Days Qty: 20 0RF clindamycin HCl 150 mg capsule 150 mg PO TID 10 Days Qty: 30 0RF clindamycin HCl 300 mg capsule 300 mg PO TID 10 Days Qty: 30 0RF Referrals: [facility] [Provider Group] Kayla Garduno MD [Non-Staff] - Julian Samuel MD [Primary Care Provider] - Stand Alone Forms: Work Release Note Visit Report Forms: Patient Portal/API <Karon Maya DO - Last Filed: 03/07/22 09:02> [facility] ED Attending Patricia Attestation: I was immediately available in the department for consultation. This documentation has been reviewed and I agree with assessment and plan. Supervised by Santos Pakrer DO Patient try was assigned myself but patient seen after my shift. <Santos Parker DO - Last Filed: 03/06/22 04:46> [facility] ED Attending Patricia Attestation: I was immediately available in the department for consultation. This documentation has been reviewed and I agree with assessment and plan. Supervised by Santos Parker DO
[2022-03-05] MEDS: LACTATED RINGERS 1,000 ML 1000 ML IV (18:35)
[2022-03-05] MEDS: PANTOPRAZOLE 40 MG VIAL IV (18:37)
[2022-03-05] MEDS: MAG HYDROX/ALUMINUM/SIMETH SUS 20 ML, LIDOCAINE VISCOUS 2% 15 ML PO (18:37)
[2022-03-05 18:55] LABS: Bilirubin Urine UA NEGATIVE (NEGATIVE); Color Urine UA YELLOW; Glucose Urine UA NEGATIVE (Negative); Ketones Urine UA NEGATIVE (NEGATIVE); Leukocyte Esterase Urine UA TRACE (NEGATIVE); Nitrite Urine UA NEGATIVE (Negative); Occult Blood Urine UA NEGATIVE (Negative); Protein Urine UA 1+ (Negative); Urobilinogen Urine UA 0.2 E.U./dL (0.2)
[2022-03-05 19:05] LABS: Appearance Urine UA CLOUDY; pH Urine UA 6.5 (4.5-8.0)
[2022-03-05 19:06] LABS: Amorphous Sediment Urine 1+; Bacteria Urine Moderate (10-30); Culture Indicated Urine Specimen Cultured; Mucus Urine 1+ (Negative); RBC Urine None Seen (0-5/HPF); Squamous Epithelial Cell Urine 5-10 /HPF (0-5/HPF); WBC Urine 5-10/HPF (0-5/HPF)
[2022-03-05 19:41] LABS: Pregnancy Test Urine Negative (Negative)
--- NOTE | 2022-03-05 19:46 | DI.CT.S_ITS ---
PROCEDURE: CT KIDNEY URETER BLADDER (KUB) INDICATIONS: history of nephrolithiasis, rt flank TECHNIQUE: Axial sections were acquired from the lung bases to the pubic symphysis. Coronal and sagittal reformats were performed. For radiation dose reduction, the following was used: automated exposure control, adjustment of mA and/or kV according to patient size. COMPARISON: None. FINDINGS: Image quality: Excellent. Lung bases: Scattered atelectasis in periphery of bilateral lung bases are seen.. Heart: No significant findings. URINARY: Right Kidney: No stones are seen. Mild prominence of right renal collecting system is noted. No significant perinephric fat stranding. Right Ureter: No hydroureter. Left Kidney: Nonobstructing stone is seen in upper pole and lower pole of left kidney measures up to 3 mm in size. Mild prominence of left renal collecting system is seen. No perinephric fat stranding. Left Ureter: No hydroureter. Bladder: Normal wall thickness. No stones. ABDOMEN: Liver: Unremarkable. Gallbladder: Numerous calcified stones are seen in dependent portion of gallbladder lumen. No gallbladder wall thickening or pericholecystic fluid. Biliary ducts: No biliary ductal dilatation. Pancreas: Unremarkable. Spleen: Unremarkable. Adrenal Glands: Unremarkable. Stomach and Bowel: Stomach, small bowel loops, and colon are unremarkable. Appendix is visualized and is within normal limits. Peritoneum: No abnormal intraperitoneal fluid. No free air. Ventral Wall: No hernia. Abdominal Nodes: No enlarged retroperitoneal or mesenteric lymph nodes. Vessels: Aorta and inferior vena cava are normal in size. PELVIS: Pelvic Organs: Uterus and bilateral adnexa show no gross abnormalities. Pelvic Nodes: Unremarkable. Miscellaneous: No inguinal hernias are seen. Bones: No suspicious bony lesion. No acute vertebral body compression fracture. IMPRESSION: 1. Tiny nonobstructing left renal calculi. Mild prominence of bilateral renal pelvises which may represent bilateral peripelvic cysts versus residual hydronephrosis from passed stone. No hydroureter. Normal appearing urinary bladder. 2. Normal appendix. No bowel obstruction. No free fluid or free air. 3. Cholelithiasis without CT evidence of acute cholecystitis. No biliary ductal dilatation. Dictated by: Haresh Hobbs M.D. on 03/05/2022 at 20:22 Approved by: Haresh Hobbs M.D. on 03/05/2022 at 20:26
[2022-03-05] MEDS: cefTRIAXone 1,000 MG in SODIUM CHLORIDE 0.9% 100 ML 200 MG IV (20:02)
[2022-03-05 20:10] LABS: Adenovirus Detected (Not Detect); B. parapertussis Not Detected (Not Detecte); Bordetella pertussis Not Detected (Not Detecte); Chlamydophila pneumoniae Not Detected (Not Detect); Coronavirus 229E Not Detected (Not Detect); Coronavirus HKU1 Not Detected (Not Detect); Coronavirus NL 63 Not Detected (Not Detect); Coronavirus OC43 Not Detected (Not Detect); Human Metapneumovirus Not Detected (Not Detect); Human Rhinovirus/Enterovirus Not Detected (Not Detect); Influenza A Not Detected (Not Detect); Influenza B Not Detected (Not Detect); Mycoplasma pneumoniae Not Detected (Not Detect); Parainfluenza Virus 1 Not Detected (Not Detect); Parainfluenza Virus 2 Not Detected (Not Detect); Parainfluenza Virus 3 Not Detected (Not Detect); Parainfluenza Virus 4 Not Detected (Not Detect); Respiratory Syncytial Virus Not Detected (Not Detect); SARS- CoV-2 Not Detected (Not Detecte)
[2022-03-05 21:05] VITALS: BP 128/77; PULSE 67; RESP 16; TEMP 35.9; O2SAT 100
== END 2022-03-05 21:06 | disposition home or self-care (01) ==
PROVIDERS: Emergency Medicine; Emergency Provider Nurse Practitioner Critical Care Medicine; PCP Family Medicine
DX: N30.01 Acute cystitis with hematuria (principal); N64.4 Mastodynia; R10.13 Epigastric pain; B34.0 Adenovirus infection, unspecified; K80.20 Calculus of gallbladder without cholecystitis without obstruction; Z87.19 Personal history of other diseases of the digestive system; Z20.822 Contact with and (suspected) exposure to COVID-19
CPT/HCPCS: 71045; 74176; 76642; 80053; 81001; 81025; 82550; 83690; 83735; 84484; 85025; 87086; 87633; 93005; 93010; 96365; 96375; 99284; 99285; C9113; J0696

== ENCOUNTER 2022-04-24 23:30 | Emergency (ER) | payer OTHER, SELFPAY ==
[2022-04-24 23:46] VITALS: BP 127/91; PULSE 98; RESP 18; TEMP 36.8; O2SAT 99; BMI 36.9
[2022-04-25] VITALS (9 sets, daily range): BP systolic 124; BP diastolic 84; PULSE 78–96; RESP 18; O2SAT 95–99
--- NOTE | 2022-04-25 06:09 | ED_ITS ---
HPI - General Adult General Chief complaint: Urogenital-Female Stated complaint: UTI Time Seen by Provider: 04/25/22 03:51 Source: patient Mode of arrival: Ambulatory History of Present Illness HPI narrative: 27-year-old woman with minimal medical history presents with recurrent plan complaints of urinary tract infection. Her symptoms began on March 05 she was diagnosed with UTI kidney infection and mastitis began taking clindamycin and cefdinir completed both. On follow-up the mastitis had resolved however she still had UTI symptoms. She was placed on Cipro 500 mg and completed that on April 02. Was seen again on April 04 urine apparently was collected and sent for culture and she is been unable to obtain results from this with multiple calls to the primary care doctor's office. She notes that she currently is having frequent urination with moderate amounts urine, pelvic cramping and bladder still has a sensation of fullness despite complete emptying, mid lower back pain and right-sided pain right armpit pain and discomfort mild vaginal irritation and no obvious temperature. She does not describe vaginal discharge she has not been sexually active for a number of months and her LMP was on April 06. She is not having any chest pain, cough, headache, nausea or vomiting. Related Data Previous Rx's Medication Instructions Recorded pantoprazole 20 mg tablet,delayed 20 mg PO BID #60 tabs 03/05/22 release phenazopyridine 100 mg tablet 100 mg PO TID PRN pain #30 tabs 04/25/22 (Pyridium) Allergies Allergy/AdvReac Type Severity Reaction Status Date / Time amoxicillin [AMOXICILLIN] Allergy Unknown Verified 03/05/22 18:34 Iodinated Contrast Media Allergy Unknown Verified 03/05/22 18:34 [IODINATED CONTRAST- ORAL AND IV DYE] sulfamethoxazole Allergy Unknown Verified 03/05/22 18:34 [From JANRA] trimethoprim [From JANRA] Allergy Unknown Verified 03/05/22 18:34 codeine Allergy Verified 03/05/22 18:34 miconazole Allergy Verified 03/05/22 18:34 [From Monistat 1 Combo Pack] Review of Systems Review of Systems Narrative: Remainder of complete review of systems is otherwise unremarkable except for that included in the HPI. Patient History Social History Smoking Status: Current every day smoker Smoking Status: Current every day smoker Substance Use Type: does not use Exam Initial Vital Signs Initial Vital Signs: Vital Signs Temperature 98.3 F 04/24/22 23:46 Pulse Rate 98 H 04/24/22 23:46 Respiratory Rate 18 04/24/22 23:46 Blood Pressure 127/91 H 04/24/22 23:46 Pulse Oximetry 99 04/24/22 23:46 Oxygen Delivery Method 04/24/22 23:46 General: Healthy appearing, in no acute distress. Able to give a complete and coherent history. Well-nourished well-developed HEENT: Moist mucous membranes, normal sclera with reactive pupils, Axilla: Minor adenopathy in the right axilla. There is no corresponding soft tissue abscess infection, breast lump or breast discharge Respiratory: Lungs are clear to auscultation, no wheezing no rales no rhonchi. Full and symmetrical air movement Cardiac: Regular rate and rhythm no murmurs no bruits Abdomen: Soft, mild suprapubic tenderness without rebound or guarding, good bowel tones, no flank pain Pelvic: External genitalia is within normal limits. There is no vaginal discharge and no tenderness with external exam. Skin: Warm and dry, no rashes Neurologic: Grossly neurologically intact with no obvious asymmetries or abnormalities Extremities: No trauma, well perfused Psych: Cooperative, appropriate insight and affect Course Orders Ordered: ED Orders 04/24/22 23:55 UA Complete [Urinalysis and Microscopic] Stat 04/25/22 06:40 Complete Blood Count AUTO DIFF Stat Comprehensive Metabolic Panel Stat Vital Signs Vital signs: Vital Signs - 8 hr 04/24/22 23:46 04/25/22 04:04 04/25/22 04:30 Temperature 98.3 F Pulse Rate 98 H 82 86 Respiratory Rate 18 Blood Pressure 127/91 H Pulse Oximetry 99 98 98 Oxygen Delivery Method Room Air 04/25/22 05:00 04/25/22 05:30 04/25/22 06:00 Temperature Pulse Rate 88 96 H 86 Respiratory Rate Blood Pressure Pulse Oximetry 98 99 95 Oxygen Delivery Method 04/25/22 06:30 Temperature Pulse Rate 89 Respiratory Rate Blood Pressure Pulse Oximetry 97 Oxygen Delivery Method Medical Decision Making Lab Data Result diagrams: 04/25/22 06:40 04/25/22 06:40 Labs: Lab Results 04/24/22 04/25/22 04/25/22 Range/Units 23:55 06:40 06:40 WBC 12.0 H (4.5-11.0) X10^3/uL RBC 5.14 (4.0-5.2) X10^6/uL Hgb 14.1 (12.0-16.0) g/dL Hct 41.9 (36-46) % MCV 81.6 (80-100) fL MCH 27.4 (26-34) PG MCHC 33.6 (30-36) % RDW 15.6 H (11.6-14.8) % Plt Count 343 (150-400) X10^3/uL Neut % (Auto) 62.2 (50-75) % Lymph % (Auto) 26.8 (25-40) % [place] % (Auto) 8.8 (3-14) % Eos % (Auto) 1.4 L (2-4) % Baso % (Auto) 0.8 (0-2) % Neut # (Auto) 7500 H (5963-0997) /uL Lymph # (Auto) 3200 (9028-2680) /uL [place] # (Auto) 1100 H (0-900) /uL Eos # (Auto) 200 (0-450) /uL Baso # (Auto) 100 (0-100) /uL Sodium 140 (137-145) mmol/L Potassium 3.7 (3.4-5.1) mmol/L Chloride 104 (98-107) mmol/L Carbon Dioxide 25 (22-32) mmol/L BUN 5 L (7-17) mg/dL Creatinine 0.49 L (0.52-1.04) mg/dL Estimated GFR > 60 (>60) mL/min BUN/Creatinine Ratio 10.2 (6-22) Glucose 110 H (70-100) mg/dL Calcium 9.0 (8.4-10.2) mg/dL Total Bilirubin 0.6 (0.2-1.3) mg/dL AST 24 (14-36) IU/L ALT 33 (<35) IU/L Alkaline Phosphatase 87 (38-126) U/L Total Protein 7.4 (6.3-8.2) g/dL Albumin 4.4 (3.5-5.0) g/dL Globulin 3.0 (1.7-4.1) g/dL Albumin/Globulin Ratio 1.5 (1.0-2.8) Urine Color Yellow Urine Appearance Clear Urine pH 6.5 (4.5-8.0) Ur Specific [place] 1.010 (1.000-1.035) Urine Protein Negative (Negative) Urine Glucose (UA) Negative (Negative) g/dL Urine Ketones Negative (NEGATIVE) Urine Occult Blood Trace-lysed (Negative) Urine Nitrate Negative (Negative) Urine Bilirubin Negative (NEGATIVE) Urine Urobilinogen 0.2 (0.2) E.U./dL Ur Leukocyte Esterase Negative (NEGATIVE) Urine RBC None seen (0-5/HPF) Urine WBC None seen (0-5/HPF) Ur Squamous Epith Cells 1-5 /hpf (0-5/HPF) Urine Bacteria None seen (None) Imaging Data CT abd 03/05/22: Radiologist's Impression: FINDINGS:? Image quality:? Excellent.? ? Lung bases:? Scattered atelectasis in periphery of bilateral lung bases are seen..? ? Heart:? No significant findings. ? URINARY: Right Kidney:? No stones are seen.? Mild prominence of right renal collecting system is noted.? No significant perinephric fat stranding. Right Ureter:? No hydroureter. ? Left Kidney:? Nonobstructing stone is seen in upper pole and lower pole of left kidney measures up to 3 mm in size.? Mild prominence of left renal collecting system is seen.? No perinephric fat stranding. Left Ureter:? No hydroureter. ? Bladder:? Normal wall thickness. No stones. ? ? ? ABDOMEN: Liver:? Unremarkable.? ? Gallbladder:? Numerous calcified stones are seen in dependent portion of gallbladder lumen.? No gallbladder wall thickening or pericholecystic fluid. Biliary ducts:? No biliary ductal dilatation. Pancreas:? Unremarkable.? ? Spleen:? Unremarkable.? ? Adrenal Glands:? Unremarkable.? ? ? Stomach and Bowel:? Stomach, small bowel loops, and colon are unremarkable.? Ap pendix is visualized and is within normal limits. Peritoneum:? No abnormal intraperitoneal fluid.? No free air.? ? Ventral Wall: ? No hernia.? Abdominal Nodes:? No enlarged retroperitoneal or mesenteric lymph nodes.? Vessels:? Aorta and inferior vena cava are normal in size.? ? PELVIS: Pelvic Organs:? Uterus and bilateral adnexa show no gross abnormalities. Pelvic Nodes: Unremarkable. Miscellaneous: No inguinal hernias are seen. ? ? ? Bones:? No suspicious bony lesion.? No acute vertebral body compression fracture. ? IMPRESSION:? 1. Tiny nonobstructing left renal calculi.? Mild prominence of bilateral renal pelvises which may represent bilateral peripelvic cysts versus residual hydronephrosis from passed stone.? No hydroureter.? Normal appearing urinary bladder. ? 2. Normal appendix.? No bowel obstruction.? No free fluid or free air. ? 3. Cholelithiasis without CT evidence of acute cholecystitis.? No biliary ductal dilatation.? ? ? Dictated by: Haresh Hobbs M.D. on 03/05/2022 at 20:22 ? ? MDM Narrative Medical decision making narrative: 27-year-old woman with recurrent ?bladder infections? without culture positi vity. Continued irritation and sensitivity with voiding without hematuria. Urinalysis today is entirely unremarkable. CT scan was done with initial presentation in February with no significant findings. He is not having any vaginal discharge to suggest alternate explanations. This point I am wondering if she perhaps has interstitial cystitis. This concerned shared with her. She will be given written information I did encourage her to actually look it up online to educate herself. She has a urologist already with a prior history of kidney stones and I encouraged her to call and schedule an appointment with a urologist regarding her recurrent pelvic pain. Will also give her a prescript ion for Pyridium to see if this helps with a bladder spasm at all. At this point there is no evidence of infection, sepsis, pelvic inflammatory disease, kidney stone. She is safe for home discharge Discharge Plan Departure Patient Disposition: Home Clinical Impression: Dysuria Instructions: DI for Interstitial Cystitis, DI for Dysuria -- Adult Activity Restrictions/Additional Instructions: Thank you for coming in and being so patient. Your urine today is absolutely unremarkable. With the symptoms that your having over the last number of months I am wondering if you actually have interstitial cystitis. I have given you some printed information on this and I encourage you to read it. You mentioned that you already have an established urologist. You need to set up a consultation appointment with the urologist to talk about your recurrent symptoms. Today you do not have a bladder infection. Regarding the swollen lymph nodes in your right armpit, this is clearly your body responding to some type of infection. If you notice skin changes deeper pain other findings to suggest where that infection might be then it would be very appropriate to be re-evaluated so we can figure out how to best treat that. Frequently this will simply resolve on its own. I have given you a prescription for Pyridium. This is a medicine that can help treat bladder spasm to see if he can at least help with the overall symptoms that you are experiencing. This prescription was electronically transmitted to [facility] If you find that you are getting worse or develop any new symptoms, please feel free to return to the emergency department for further evaluation. Prescriptions: New phenazopyridine [Pyridium] 100 mg tablet 100 mg PO TID PRN (Reason: pain) Qty: 30 0RF No Action pantoprazole 20 mg tablet,delayed release (DR/EC) 20 mg PO BID Qty: 60 0RF Referrals: Julain Samuel MD [Primary Care Provider] -
[2022-04-25 06:28] LABS: Appearance Urine UA CLEAR; Bilirubin Urine UA NEGATIVE (NEGATIVE); Color Urine UA YELLOW; Glucose Urine UA NEGATIVE (Negative); Ketones Urine UA NEGATIVE (NEGATIVE); Leukocyte Esterase Urine UA NEGATIVE (NEGATIVE); Nitrite Urine UA NEGATIVE (Negative); Occult Blood Urine UA TRACE-LYSED (Negative); Protein Urine UA NEGATIVE (Negative); Urobilinogen Urine UA 0.2 E.U./dL (0.2)
[2022-04-25 06:34] LABS: pH Urine UA 6.5 (4.5-8.0)
[2022-04-25 06:41] LABS: RBC Urine None Seen (0-5/HPF); Squamous Epithelial Cell Urine 1-5 /HPF (0-5/HPF); WBC Urine None Seen (0-5/HPF)
[2022-04-25 07:15] LABS: Add Manual Diff / Slide Review NO; Basophils Absolute Auto 100 /uL (0-100); Basophils Percent Auto 0.8 % (0-2); Eosinophils Absolute Auto 200 /uL (0-450); Eosinophils Percent Auto 1.4 % (2-4); Hematocrit 41.9 % (36-46); Hemoglobin 14.1 g/dL (12.0-16.0); Lymphocytes Absolute Auto 3200 /uL (1100-4500); Lymphocytes Percent Auto 26.8 % (25-40); Mean Corpuscular HGB Conc 33.6 % (30-36); Mean Corpuscular Hemoglobin 27.4 PG (26-34); Mean Corpuscular Volume 81.6 fL (80-100); Monocytes Absolute Auto 1100 /uL (0-900); Monocytes Percent Auto 8.8 % (3-14); Neutrophils Absolute Auto 7500 /uL (1500-7000); Neutrophils Percent Auto 62.2 % (50-75); Platelet Count 343 X10^3/uL (150-400); Red Blood Cell Count 5.14 X10^6/uL (4.0-5.2); Red Cell Distribution Width 15.6 % (11.6-14.8)
[2022-04-25 07:20] LABS: Alanine Aminotransferase 33 IU/L (<35); Albumin 4.4 g/dL (3.5-5.0); Albumin Globulin Ratio 1.5 (1.0-2.8); Alkaline Phosphatase 87 U/L (38-126); Aspartate Aminotransferase 24 IU/L (14-36); BUN Creatinine Ratio 10.2 (6-22); Bilirubin Total 0.6 mg/dL (0.2-1.3); Blood Urea Nitrogen 5 mg/dL (7-17); Carbon Dioxide 25 mmol/L (22-32); Chloride 104 mmol/L (98-107); Estimated Glomerular Filt Rate > 60 mL/min (>60); Glucose 110 mg/dL (70-100); HEMOLYSIS < 15 (0-50); Potassium 3.7 mmol/L (3.4-5.1); Sodium 140 mmol/L (137-145); Total Protein 7.4 g/dL (6.3-8.2)
[2022-04-25 07:35] LABS: Bacteria Urine None Seen
[2022-04-25] MEDS: PHENAZOPYRIDINE 100 MG TABLET 200 MG PO (07:48)
== END 2022-04-25 07:52 | disposition home or self-care (01) ==
PROVIDERS: Emergency Provider Emergency Medicine; PCP Family Medicine
DX: R30.0 Dysuria (principal)
CPT/HCPCS: 36415; 80053; 81001; 85025; 99283